=== PATIENT | female | born 1985 | race Caucasian/White ===

== ENCOUNTER 2023-06-04 12:35 | Outpatient (CLI) | payer BC, SELFPAY ==
--- NOTE | 2023-06-04 12:45 | USR_ITS ---
PROCEDURE INFORMATION: Exam: US , Limited Exam date and time: 06/04/2023 1:20 PM Age: 37 years old Clinical indication: Screening exam; Routine US, uterus; Additional info: In the next week if possible - anatomy US TECHNIQUE: Imaging protocol: Real-time ultrasound of the maternal uterus with image documentation. Exam focused on the clinical indication. COMPARISON: No relevant prior studies available. FINDINGS: Gestation: Single live intrauterine gestation/. heart rate: 153 bpm presentation and position: position variable. Placenta: Posterior, no previa. Cervix appears long and closed. BIOMETRY: Estimated due date (AUA): Average ultrasound age 24 weeks 1 day with SEDA 09/23/2023. Estimated weight: 655.01 g. (1 lb 7 oz) EFW by AC, BPD, FL, HC, Hadlock 1985 36.3 percentile. Biparietal diameter (BPD): 5.89 cm. EGA (BPD) is 24 w 1 d. 40.8 % percentile Head circumference (HC): 22.4 cm. EGA (HC) is 24 w 3 d. 42.2 % percentile Abdominal circumference (AC): 19.19 cm. EGA (AC) is 23 w 6 d. 33.7 % percentile Femur length (FL): 4.31 cm. EGA (FL) is 24 w 1 d. 36 % percentile Cephalic index (CI): 73.63. (Normal range: 70 - 86) HC/AC: 1.17. (Normal range: 1.04 - 1.22) FL/HC: 19.24. (Normal range: 18.7 - 20.81) FL/BPD: 73.17. (Normal range: 71 - 87) FL/AC: 22.46. (Normal range: 20 - 24) Visualized anatomy appears within normal limits, including four-chamber heart, extremities, face, profile, spine, LVOT, cord insertion, urinary bladder, stomach, kidneys, three-vessel cord, lateral ventricles/choroid plexus, cerebellum/cm, CSP, LVOT/RVOT, and diaphragm. Female gestation suggested. US/US OB >= 14 weeks fetus [id number] IMPRESSION: Single viable intrauterine of 24 weeks 1 day AUA, EFW 655.01 g (36.3 percentile), posterior placenta, long and closed cervix, variable position, and unremarkable anatomy.
== END 2023-06-04 12:36 | disposition home or self-care (01) ==
LOC: RAD 12:35
PROVIDERS: PCP Family Medicine; Visit Provider Family Medicine
DX: O09.522 Supervision of elderly multigravida, second trimester (principal); Z86.32 Personal history of gestational diabetes; O09.299 Supervision of pregnancy with other poor reproductive or obstetric history, unspecified trimester; Z3A.24 24 weeks gestation of pregnancy
CPT/HCPCS: 76805; 82951; 82952

== ENCOUNTER → 2023-06-24 12:22 | Outpatient (BNVA) | payer BC, SELFPAY | PROVIDERS: PCP Family Medicine; Visit Provider Family Medicine | DX: Z34.90 Encounter for supervision of normal pregnancy, unspecified, unspecified trimester (principal) | CPT/HCPCS: 80307; 86762; 86803; 86850; 86900; 87086; 87340 ==

== ENCOUNTER → 2023-07-20 14:18 | Outpatient (BNVA) | payer BC, SELFPAY | PROVIDERS: PCP Family Medicine; Visit Provider Family Medicine | DX: O09.522 Supervision of elderly multigravida, second trimester (principal); Z51.81 Encounter for therapeutic drug level monitoring; Z3A.00 Weeks of gestation of pregnancy not specified | CPT/HCPCS: 85025 ==

== ENCOUNTER → 2023-08-31 13:31 | Outpatient (BNVA) | payer BC, MEDICAID, SELFPAY | PROVIDERS: PCP Family Medicine; Visit Provider Family Medicine | DX: O09.523 Supervision of elderly multigravida, third trimester (principal); R03.0 Elevated blood-pressure reading, without diagnosis of hypertension; Z51.81 Encounter for therapeutic drug level monitoring; Z3A.00 Weeks of gestation of pregnancy not specified | CPT/HCPCS: 80053; 82570; 84156; 84550; 85025 ==

== ENCOUNTER 2023-09-03 13:04 | Outpatient (CLI) | payer BC, MEDICAID, SELFPAY ==
--- NOTE | 2023-09-03 13:30 | US_ITS ---
WS: [id number] LIMITED OBSTETRICAL ULTRASOUND HISTORY: CAROL/EFW - This week please COMPARISON: 06/04/2023 Presentation: Vertex. Cervix: Obscured by the head. Placenta: Posterior and fundal. Grade: 1 HEART: FHR of 148 BPM. measurements: BPD = 9.0 cm = 36w4d; 50% HC = 32.7 cm = 37w1d; 24% AC = 32.8 cm = 36w5d; 50% FL = 7.3 cm = 37w2d; 51% CAROL: 17.4 cm EFW: 3046.6 g; 48 % AGA by ultrasound: 37w0d SEDA by ultrasound: 09/24/2023 US/US OB limited [id number] IMPRESSION: 1. Single intrauterine gestation of 37w0d with an SEDA of 09/24/2023. Appropria te growth since the second trimester ultrasound of 06/04/2023. 2. Normal amniotic fluid. 3. Normal weight at the 48th percentile.
== END 2023-09-03 13:05 | disposition home or self-care (01) ==
LOC: RAD 13:05
PROVIDERS: PCP Family Medicine; Visit Provider Family Medicine
DX: O09.523 Supervision of elderly multigravida, third trimester (principal)
CPT/HCPCS: 76815

== ENCOUNTER 2023-09-03 13:08 | Outpatient (CLI) | payer BC, MEDICAID, SELFPAY ==
[2023-09-03 14:31] LABS: Total Volume, Urine 4400 mL
== END 2023-09-03 13:09 | disposition home or self-care (01) ==
LOC: LAB 13:10
PROVIDERS: PCP Family Medicine; Visit Provider Family Medicine
DX: O09.523 Supervision of elderly multigravida, third trimester (principal); R03.0 Elevated blood-pressure reading, without diagnosis of hypertension
CPT/HCPCS: 84156

== ENCOUNTER 2023-09-15 23:48 | Inpatient (IN) | payer BC, MEDICAID, SELFPAY ==
[2023-09-15] VITALS (11 sets, daily range): BP systolic 132–148; BP diastolic 64–79; PULSE 64–82; RESP 16; BMI 37.5
[2023-09-15 22:52] LABS: Basophils % 0.3 %; Eosinophils % 0.4 %; Hematocrit 33.9 % (36-47); Lymphocytes # 1.3 10^3/uL (0.8-4.8); Lymphocytes % 17.1 %; Mean Corpuscular HGB Conc 33.3 g/dL (30-55); Mean Corpuscular Hemoglobin 26.7 pg (27-33); Mean Corpuscular Volume 80.1 fl (85-98); Mean Platelet Volume 10.8 fL (7.4-10.4); Monocytes # 0.5 10^3/uL (0.2-0.9); Monocytes % 6.1 %; Neutrophils # 5.58 10^3/uL (1.8-7.7); Neutrophils % 75.2 %; Nucleated Red Blood Cells % 0 %; Platelet Count 177 10^3/cmm (157-399); Red Blood Count 4.23 10^6/uL (3.85-5.65); Red Cell Distribution Width 14.5 % (12.1-15.1); White Blood Count 7.42 10^3/uL (3.29-11.43)
[2023-09-16] VITALS (37 sets, daily range): BP systolic 103–150; BP diastolic 58–87; PULSE 58–87; RESP 16–20; TEMP 36.6–37.2; O2SAT 98–99
[2023-09-16] MEDS: miSOPROStol 100 mcg tablet 25 MCG VAGINAL (09:29)
[2023-09-16] MEDS: lactated ringers 1,000 ML 999 ML IV (14:54)
[2023-09-16] MEDS: oxytocin 30 UNIT/500 ML BAG 999 UNIT IV (18:02)
[2023-09-16] MEDS: dextrose 5%-lactated ringers 1,000 ML 125 ML IV (18:03)
--- NOTE | 2023-09-16 20:19 | PM.DELIVERY ---
Delivery Note: Date of delivery: September 16, 2023 Pre-delivery diagnoses: 38-year-old 6 para 3-0-2-3 at 39 weeks estimated gestational age Post-delivery diagnoses: Status post vaginal delivery with shoulder dystocia Procedure: Vaginal delivery with shoulder dystocia Delivering Physician: Eric Saeed Estimated blood loss (mL): 50 Pre-Delivery Course: The patient presented to the hospital having consistent contractions and having made cervical change since being seen in the office. Through the night she had contractions but made minimal change. Cytotec x 1 was given. About 4 hours later she began to make significant progress. She then progressed to 9 cm. While checking her, her membranes ruptured. Her cervix was noted to be 9 cm and very stretchy. After pushing through 1 contraction her cervix was noted to easily stretch around the baby's head. After 1 push her cervix was then complete. Delivery: DELIVERY: We pushed through 1 more contraction, and she delivered a female with a weight of 8 pounds 15 ounces with Apgars of 4, 9. The baby was delivered from the PUNEET position. After delivery of the head, a shoulder dystocia was noted. La was performed. I initially attempted a corkscrew maneuver which was unsuccessful. I then attempted to deliver the posterior shoulder which was also unsuccessful. I then pushed back on the posterior shoulder while reattempted the corkscrew maneuver and the shoulder was successfully delivered. The shoulder dystocia lasted for about 1 minute. During the last corkscrew maneuver and delivery of the shoulder I felt a pop consistent with a clavicle fracture. The baby was then placed on the mother's abdomen. The baby was noted to be moving both arms symmetrically and apparently without difficulty. The cord was then clamped and cut. There was no nuchal cord. There was no meconium. The placenta and 3 vessel cord were delivered intact shortly thereafter. The perineum and vaginal vault were carefully examined. A small first-degree posterior midline laceration was noted. no repair was required. Both the mother and the baby were in stable condition. Post-Delivery Status: Good History History History 6 Term 3 Miscarriages/Ectopic 2 Living Children Past Pregnancies Del. Date GA/Weeks Outcome Route Wt Inf Gender Labor Lgth Comp. Anesthesia Location 02/14/16 38 live - full term Vaginal Female Shoulder dystocia [facility] 01/15/18 39 live - full term Vaginal 8 lb 8 oz Female 8 hrs [facility] 11/12/19 39 live - full term Vaginal 9 lb 14 oz Male 24 hrs [facility] 06/08/22 4 spontaneous 09/08/22 4 spontaneous Delivery Date: 02/14/16 Last Updated by: Shahram Hand MD Spontaneous labor, delivered 45 min from arrival, blood pressure in 140/70's. No official preeclampsia, vaginal tear, shoulder dystocia <30 seconds, retained placenta with manual removal, no epidural Delivery Date: 01/15/18 Last Updated by: Shahram Hand MD BP's 140/70 - concern for preeclampsia, started Aspirin 81mg, spontaneous labor, No epidural, TIA a week after delivery Delivery Date: 11/12/19 Last Updated by: Shahram Hand MD Induced with cytotec for concern for LGA (estimated >10 lbs), gDM Insulin 10 units daily, low dose aspirin, concerns for preeclampsia but nothing major . No epidural A&P Assessment and plan (1) 39 weeks gestation of : I anticipate routine care. (2) Shoulder dystocia during labor and delivery, delivered: Coding Level of Care Code Acute Code for Chg Fwd Diagnoses 39 weeks gestation of Z3A.39 Shoulder dystocia during labor and delivery, delivered O66.0
--- NOTE | 2023-09-16 20:25 | P.HPUD_ITS ---
Labor & Delivery H&P Update Date of Procedure: September 16, 2023 Date H&P Performed: 09/13/23 Changes to previous documentation: The patient's cervix was 4 cm dilated with consistent contractions. Admission Diagnosis: 38-year-old 6 para 3-0-2-3 female at 39 weeks estimated gestational age Planned procedure: Vaginal delivery Other information: The patient is a 38-year-old female who has had a relatively unremarkable . Her blood type was O+. Her antibody screen was negative. Her infectious disease profile was within normal limits. She is rubella immune. She was GBS negative. She passed her 3-hour glucose screen. She began contractions the day of delivery. The became consistent and more st lesia and as result she came in for further evaluation. Her membranes were intact. She had no other concerns. She did have a history of 3 previous children who had shoulder dystocia as well as hyperbilirubinemia. Related Problem List Diagnoses (1) 39 weeks gestation of : (2) History of shoulder dystocia in prior : A&P Assessment and plan (1) 39 weeks gestation of : While the patient was not making rapid chains upon arrival to the hospital, we elected to keep her in to augment her labor for multiple reasons. The first is that she has a history of shoulder dystocia and large babies. As such, she and her baby may benefit from a 39-week delivery. The second is that she also has a history of rapid labors when she does go into labor. Since she lives in [place] and has over half hour trip to the hospital, I felt to be difficult to tell her to go home away to the contractions became stronger since she was unable consistent strong contractions and she would be high risk for delivering the baby at home. Especially in light of her tendency towards quick deliveries that then ended up and shoulder dystocia the benefits of sending her home were outweighed by the risks. Finally, given her age greater than 35 her risk for complications would be greater over the next 1 to 2 weeks. Status: Acute (2) History of shoulder dystocia in prior : Status: Acute
[2023-09-17] VITALS (9 sets, daily range): BP systolic 123–162; BP diastolic 72–84; PULSE 72–81; RESP 16; TEMP 36.6–37; O2SAT 98
--- NOTE | 2023-09-17 07:44 | P.DS_ITS ---
Discharge Providers S IRON WORKER Date of Admission: 09/15/23 23:48 Date of Discharge: 09/17/23 Attending Provider at Admission: Eric Saeed MD Attending Provider at Discharge: Eric Saeed MD Primary Care Provider: Shahram Hand MD Diagnoses at Discharge Discharge Diagnosis (1) 39 weeks gestation of : Status: Acute (2) Shoulder dystocia during labor and delivery, delivered: Status: Acute Reason for Visit Reason for Visit: CTX-5 min Hospital Course Hospital Course The patient received excellent care by Dr. Hand. I was covering for Dr. Hand and was notified that the patient presented to the hospital after having consistent contractions. Her cervix was found to be dilated compared to her reported office visit. Due to multiple factors described in the H&P, the decision was made to admit her to the hospital, and ultimately augment her labor. She did not get an epidural or have any other pain control. She progressed to 9 cm with intact membranes. Her membranes ruptured during a cervical check. She then pushed through 2 contractions and delivered the head without difficulty. She had a shoulder dystocia which resolved with appropriate interventions in about a minute. She had a first-degree posterior midline tear that was not repaired. Her course was unremarkable. Her bleeding was within normal limits. Her pain was well-controlled. She breast-fed well. There were no concerns. Information Peripartum Data: Infant Delivery Method: Vaginal Physical Exam Narrative: The patient is alert. She appears comfortable. Her heart has a regular rate and rhythm with no murmurs appreciated. Lungs are clear to auscultation bilaterally. Her fundus is firm and below the umbilicus. History History History 6 Term 3 Miscarriages/Ectopic 2 Living Children Past Pregnancies Del. Date GA/Weeks Outcome Route Wt Inf Gender Labor Lgth Comp. Anesth esia Location 02/14/16 38 live - full term Vaginal Female Shoul neil dystocia [facility] 01/15/18 39 live - full term Vaginal 8 lb 8 oz Female 8 hrs [facility] 11/12/19 39 live - full term Vaginal 9 lb 14 oz Male 24 hrs [facility] 06/08/22 4 spontaneous 09/08/22 4 spontaneous Delivery Date: 02/14/16 Last Updated by: Shahram Hand MD Spontaneous labor, delivered 45 min from arrival, blood pressure in 140/70's. No official preeclampsia, vaginal tear, shoulder dystocia <30 seconds, retained placenta with manual removal, no epidural Delivery Date: 01/15/18 Last Updated by: Shahram Hand MD BP's 140/70 - concern for preeclampsia, started Aspirin 81mg, spontaneous labor, No epidural, TIA a week after delivery Delivery Date: 11/12/19 Last Updated by: Shahram Hand MD Induced with cytotec for concern for LGA (estimated >10 lbs), gDM Insulin 10 units daily, low dose aspirin, concerns for preeclampsia but nothing major . No epidural Discharge Data Studies Completed and Pending Pending at discharge Category Date Time Status Hemagram Timed Lab 09/17/23 08:18 Uncollected Laboratory Results WBC 7.42 10^3/uL (3.29-11.43) 09/15/23 21:00 RBC 4.23 10^6/uL (3.85-5.65) 09/15/23 21:00 Hgb 11.30 g/dL (11.27-16.99) 09/15/23 21:00 Hct 33.9 % (36-47) L 09/15/23 21:00 MCV 80.1 fl (85-98) L 09/15/23 21:00 MCH 26.7 pg (27-33) L 09/15/23 21:00 MCHC 33.3 g/dL (30-55) 09/15/23 21:00 RDW 14.5 % (12.1-15.1) 09/15/23 21:00 Plt Count 177 10^3/cmm (157-399) 09/15/23 21:00 MPV 10.8 fL (7.4-10.4) H 09/15/23 21:00 Neut % (Auto) 75.2 % 09/15/23 21:00 Lymph % (Auto) 17.1 % 09/15/23 21:00 [place] % (Auto) 6.1 % 09/15/23 21:00 Eos % (Auto) 0.4 % 09/15/23 21:00 Baso % (Auto) 0.3 % 09/15/23 21:00 Neut # (Auto) 5.58 10^3/uL (1.8-7.7) 09/15/23 21:00 Lymph # (Auto) 1.3 10^3/uL (0.8-4.8) 09/15/23 21:00 [place] # (Auto) 0.5 10^3/uL (0.2-0.9) 09/15/23 21:00 Eos # (Auto) 0.0 10^3/uL (0.0-0.8) 09/15/23 21:00 Baso # (Auto) 0.0 10^3/uL (0.0-0.1) 09/15/23 21:00 Nucleated RBC % (auto) 0 % 09/15/23 21:00 Nucleated RBCs # 0.0 /100WBC 09/15/23 21:00 Blood Type O Positive 09/15/23 21:00 Rho(D) Type Rh positive 09/15/23 21:00 Antibody Screen Negative 09/15/23 21:00 Vitals Last Vital Signs Temp 98.3 F 09/17/23 06:45 Pulse 72 09/17/23 06:45 Resp 20 H 09/16/23 17:14 BP 144/79 09/17/23 06:45 Pulse Ox 98 09/16/23 23:00 O2 Del Method Room Air 09/15/23 22:38 Results Labs OB ([facility]): Obstetrics US 09/03/23 Blood Type O Positive 09/15/23 Antibody Screen Negative 09/15/23 Hct 33.9 % (36-47) L 09/15/23 Hgb 11.30 g/dL (11.27-16.99) 09/15/23 Rho(D) Type Rh positive 09/15/23 Plt Count 177 10^3/cmm (157-399) 09/15/23 Hep Bs Antigen Non-reactive (Nonreactive) 06/24/23 Hepatitis C Antibody Non-reactive (Nonreactive) 06/24/23 Rubella IgG Antibody 338.9 IU/mL (0.0-10.0) H 06/24/23 Gest Glucose Tolerance mg/dL 06/04/23 Uric Acid 3.7 mg/dL (2.4-5.7) 08/31/23 Urine Opiates Screen Negative ng/mL (Negative) 06/24/23 Ur Barbiturates Screen Negative ng/mL (Negative) 06/24/23 Ur Phencyclidine Scrn Negative ng/mL (Negative) 06/24/23 Ur Amphetamines Screen Negative ng/mL (Negative) 06/24/23 U Benzodiazepines Scrn Negative ng/mL (Negative) 06/24/23 Urine Cocaine Screen Negative ng/mL (Negative) 06/24/23 U Marijuana (THC) Screen Negative ng/mL (Negative) 06/24/23 Micro Urine Specimen 06/24/23 Discharge Plan Discharge Patient Disposition: Home Condition: Stable Prescriptions: New ibuprofen 800 mg Tablet 800 mg PO TID Qty: 45 0RF Discontinued (DME) FreeStyle Lite Strips Strip See Rx Instructions .Route Qty: 100 3RF Rx Instructions: As directed (DME) lancets [FreeStyle Lancets] 28 gauge misc See Rx Instructions .Route Qty: 100 3RF Rx Instructions: As directed (DME) lancets [OneTouch Delica Plus Lancet] 33 gauge misc See Rx Instructions .ROUTE .MEDSUPPLY Qty: 100 12RF Rx Instructions: As directed (DME) blood-glucose meter [OneTouch Ultra2 Meter] Misc See Rx Instructions .ROUTE .MEDSUPPLY Qty: 1 0RF Rx Instructions: As directed (DME) OneTouch Ultra Test Strip See Rx Instructions .Route Qty: 100 3RF Rx Instructions: As directed Discharge Orders: Discharge Order (Routine); Ordered 09/17/23 Ordered By: Eric Saeed Referrals: Shahram Hand MD [Primary Care Provider] - 6 Weeks Discharge Diet: Usual diet Discharge Activity: Limit activity as instructed Patient Instructions: Opioid Safety Discharge Attestations S IRON WORKER Time Spent in Discharge Care*: less than 30 min Coding Level of Care Code Acute Code for Chg Fwd Diagnoses 39 weeks gestation of Z3A.39 Shoulder dystocia during labor and delivery, delivered O66.0
[2023-09-17 08:48] LABS: Hematocrit 34.3 % (36-47); Mean Corpuscular HGB Conc 32.7 g/dL (30-55); Mean Corpuscular Hemoglobin 26.4 pg (27-33); Mean Corpuscular Volume 80.9 fl (85-98); Mean Platelet Volume 10.3 fL (7.4-10.4); Platelet Count 144 10^3/cmm (157-399); Red Blood Count 4.24 10^6/uL (3.85-5.65); Red Cell Distribution Width 14.6 % (12.1-15.1); White Blood Count 8.67 10^3/uL (3.29-11.43)
== END 2023-09-17 19:57 | disposition home or self-care (01) | DRG 807 ==
LOC: OPOB 23:49 → OBGYN 23:49
PROVIDERS: Admitting Provider Family Medicine; PCP Family Medicine; Visit Provider Family Medicine
DX: O66.0 Obstructed labor due to shoulder dystocia (principal); Z37.0 Single live birth; O70.0 First degree perineal laceration during delivery; Z3A.39 39 weeks gestation of pregnancy
CPT/HCPCS: 36415; 59025; 59409; 85025; 85027; 86850; 86900; 99211; J2590; J7120; J7121

== ENCOUNTER 2024-12-07 20:28 | Emergency (ER) | payer BC, MEDICAID, SELFPAY ==
[2024-12-07 20:29] VITALS: BP 134/78; PULSE 80; RESP 16; TEMP 37.3; O2SAT 98; BMI 33.8
--- NOTE | 2024-12-07 20:33 | ECG_ITS ---
[facility] Date: 2024-12-07 Pat Name: Beverley Rowland Department: Room: Gender: Female Physician/Internist: : [id number] Requested By: Pierce Kim Order Number: [id number] Jimenez MD: Bernard Elizabeth M.D. Measurements Intervals [place] Rate: 82 P: 38 OH: 165 QRS: 38 QRSD: 109 T: 46 QT: 372 QTc: 436 Interpretive Statements SINUS RHYTHM No previous ECG available for comparison Electronically Signed On 12-09-2024 20:51:36 CDT by Bernard Elizabeth M.D. [email or web address]
--- NOTE | 2024-12-07 20:48 | XRR_ITS ---
PROCEDURE INFORMATION: Exam: XR Chest Exam date and time: 12/07/2024 8:54 PM Age: 39 years old Clinical indication: Pain; Angina pectoris; Additional info: Chest pain TECHNIQUE: Imaging protocol: Radiologic exam of the chest. Views: 1 view. COMPARISON: No relevant prior studies available. FINDINGS: Lungs: Unremarkable. No consolidation. Pleural spaces: Unremarkable. No pleural effusion. No pneumothorax. Heart/Mediastinum: Unremarkable. No cardiomegaly. Bones/joints: Unremarkable. XR/XR chest 1V portable [id number] IMPRESSION: No acute findings.
[2024-12-07 21:28] LABS: Hematocrit 38.4 % (36-47); Hemoglobin 12.30 g/dL (11.27-16.99); Mean Corpuscular HGB Conc 32.0 g/dL (30-55); Mean Corpuscular Hemoglobin 26.6 pg (27-33); Mean Corpuscular Volume 82.9 fl (85-98); Nucleated Red Blood Cells % 0 %; Platelet Count 258 10^3/cmm (157-399); Red Blood Count 4.63 10^6/uL (3.85-5.65); White Blood Count 7.51 10^3/uL (3.29-11.43)
[2024-12-07 21:45] LABS: Alanine Aminotransferase 14 U/L (0-33); Albumin Level 4.5 g/dL (3.5-5.2); Alkaline Phosphatase 93 U/L (35-105); Anion Gap 17.2 (5-19); Aspartate Amino Transferase 16 U/L (0-32); Blood Urea Nitrogen 12 mg/dL (6-20); Calcium 9.7 mg/dL (8.5-10.5); Carbon Dioxide 25 mmol/L (22-29); Chloride 105 mmol/L (98-107); Creatinine Clr Calc Pharmacy 154.3280; Globulin 2.6 g/dL (1.3-4.6); Glucose 110 mg/dL (65-115); Osmolality Calculated 296 mOsm/kg (285-295); Potassium 4.2 mmol/L (3.5-5.1); Sodium 143 mmol/L (136-145); Total Protein 7.1 g/dL (6.6-8.7)
[2024-12-07 21:46] LABS: Troponin(5th) Baseline < 6 ng/L (0-10)
[2024-12-07 23:31] VITALS: BP 176/98; PULSE 87; RESP 13; O2SAT 96
--- NOTE | 2024-12-07 23:59 | ED_ITS ---
HPI - Chest Pain 2 General: Chief Complaint: Chest Pain Stated Complaint: CP Time Seen by Provider: 12/07/24 23:18 History of Present Illness: Patient is a kind 39-year-old female without medical issues or home medications, presents to the emergency room when she had a sharp stabbing pain in her left scapula occur at 3 PM. She does not have history of coagulopathy. She does not have a history of coronary artery disease. There is no early history of cardiac disease in her family. This was associated with worsening pain throughout the day in her scapula, then she noted it sweeping across the front of her shoulder on the left side, and her jaw. She did have some associated shortness of breath at that time. No abdominal pain. No nausea. No sick contacts. No previous ischemic workup. When moving the left arm, this was worse. Associated symptoms: Reports palpitations; Deny abdominal pain, dyspnea, fever(s), nausea or vomiting Related Data Previous Rx's ?Medication ?Instructions ?Recorded ketorolac 10 mg tablet 10 mg PO Q8H PRN pain 5 days #14 12/08/24 tabs methocarbamol 500 mg tablet 500 mg PO Q8H PRN muscle s pasm #30 12/08/24 tabs Allergies Allergy/AdvReac Type Severity Reaction Status Date / Time amoxicillin Allergy Mild ALGY-Rash Verified 12/07/24 20:41 Review of Systems 2 General: Reports: 10 or more systems reviewed and unremarkable except in HPI and below Const: Denies: fever(s) or chills ENMT: Denies: throat pain or mouth pain Card: Reports: chest pain and palpitations Resp: Denies: dyspnea or non-productive cough GI: Denies: abdominal pain, nausea or vomiting : Denies: flank pain or difficulty voiding Musc: Denies: neck pain or back pain Neuro: Denies: headache(s) or numbness in extremities Psych: Denies: anxiety or depression PFSH ED 2 PFSH: Medical History (Updated 12/08/24 @ 00:11 by CHIQUIS Gordon) History of shoulder dystocia in prior 39 weeks gestation of Surgical History Hx of wisdom tooth extraction Family History Father Diabetes mellitus, type 2 Macular degeneration Social History Smoking and tobacco/nicotine status: never used tobacco/nicotine Alcohol intake: never Substance/Drug Use: never Marital status: Physical Exam 2 Const: COMMON NORMALS: no acute distress, average body habitus, patient oriented x3 and no limitations HENMT: COMMON NORMALS: normocephalic and atraumatic HEAD & SCALP: n ormocephalic and atraumatic Neck/C-Spine: COMMON NORMALS: no JVD Chest: COMMONS NORMALS: normal inspection of the chest and normal palpation of entire chest wall Resp: COMMON NORMALS: normal respiratory effort, No retractions and clear to auscultation bilaterally AUSCULTATION: clear to auscultation bilaterally Cardio: COMMON NORMALS: no JVD, regular rate and regular rhythm RATE: r egular rate RHYTHM: regular rhythm GI: COMMON NORMALS: Normal to inspection, nondistended, normoactive bowel sounds present, Soft to palpation, non-tender and No hepatosplenomegaly present PALPATION: Yes Soft to palpation and Yes No hepatosplenomegaly present : COMMON NORMALS: Yes no CVA tenderness BLADDER/KIDNEY EXAM: Yes no CVA tenderness Back/Pelvis: COMMON NORMALS: no CVA tenderness Extremity: COMMON NORMALS: normal to inspection and capillary refill normal NARRATIVE EXTREMITY EXAM: Decreased left shoulder range of motion. This is secondary to pain. Empty can test is negative. Left scapula with pain on palpation. Neuro: COMMON NORMALS: patient oriented x3 and CN's II-XII intact bilaterally Psych: COMMON NORMALS: mental status grossly normal and Normal thought process present THOUGHT PROCESS: Normal thought process present Course 2 Vital Signs: Vital signs: Vital Signs Temperature 99.1 F 12/07/24 20:29 Pulse Rate 87 12/07/24 23:31 Respiratory Rate 13 12/07/24 23:31 Blood Pressure 176/98 12/07/24 23:31 Pulse Oximetry 96 12/07/24 23:31 Oxygen Delivery Me thod Room Air 12/07/24 23:31 MDM - Chest Pain Medical Decision Making Patient is a 39-year-old female with left scapular pain. This is worse with range of motion, and palpitation. Initial workup is negative. Chest x-ray is negative. This is associated with musculoskeletal pain. Will give Toradol, Norflex x 1, and treat with methocarbamol, Toradol outpatient. Patient will follow-up primary care. Lab Data 12/07/24 21:13 12/07/24 21:13 Radiology Impressions Chest X-Ray 12/07/24 20:48 IMPRESSION: No acute findings. Laboratory Results WBC 7.51 10^3/uL (3.29-11.43) 12/07/24 21:13 RBC 4.63 10^6/uL (3.85-5.65) 12/07/24 21:13 Hgb 12.30 g/dL (11.27-16.99) 12/07/24 21:13 Hct 38.4 % (36-47) 12/07/24 21:13 MCV 82.9 fl (85-98) L 12/07/24 21:13 MCH 26.6 pg (27-33) L 12/07/24 21:13 MCHC 32.0 g/dL (30-55) 12/07/24 21:13 RDW 13.6 % (12.1-15.1) 12/07/24 21:13 Plt Count 258 10^3/cmm (157-399) 12/07/24 21:13 MPV 9.7 fL (7.4-10.4) 12/07/24 21:13 Neut % (Auto) 64.9 % 12/07/24 21:13 Lymph % (Auto) 26.0 % 12/07/24 21:13 [place] % (Auto) 4.4 % 12/07/24 21:13 Eos % (Auto) 3.7 % 12/07/24 21:13 Baso % (Auto) 0.5 % 12/07/24 21:13 Neut # (Auto) 4.87 10^3/uL (1.8-7.7) 12/07/24 21:13 Lymph # (Auto) 2.0 10^3/uL (0.8-4.8) 12/07/24 21:13 [place] # (Auto) 0.3 10^3/uL (0.2-0.9) 12/07/24 21:13 Eos # (Auto) 0.3 10^3/uL (0.0-0.8) 12/07/24 21:13 Baso # (Auto) 0.0 10^3/uL (0.0-0.1) 12/07/24 21:13 Nucleated RBC % (auto) 0 % 12/07/24 21:13 Nucleated RBCs # 0.0 /100WBC 12/07/24 21:13 Sodium 143 mmol/L (136-145) 12/07/24 21:13 Potassium 4.2 mmol/L (3.5-5.1) 12/07/24 21:13 Chloride 105 mmol/L (98-107) 12/07/24 21:13 Carbon Dioxide 25 mmol/L (22-29) 12/07/24 21:13 Anion Gap 17.2 (5-19) 12/07/24 21:13 BUN 12 mg/dL (6-20) 12/07/24 21:13 Creatinine 0.6 mg/dL (0.5-0.9) 12/07/24 21:13 GFR Calculation 112.5 mL/min (90-130) 12/07/24 21:13 Glucose 110 mg/dL (65-115) 12/07/24 21:13 Calculated Osmolality 296 mOsm/kg (285-295) H 12/07/24 21:13 Calcium 9.7 mg/dL (8.5-10.5) 12/07/24 21:13 Total Bilirubin 0.2 mg/dL (0.15-1.2) 12/07/24 21:13 AST 16 U/L (0-32) 12/07/24 21:13 ALT 14 U/L (0-33) 12/07/24 21:13 Alkaline Phosphatase 93 U/L (35-105) 12/07/24 21:13 Troponin T Baseline < 6 ng/L (0-10) 12/07/24 21:13 Total Protein 7.1 g/dL (6.6-8.7) 12/07/24 21:13 Albumin 4.5 g/dL (3.5-5.2) 12/07/24 21:13 Globulin 2.6 g/dL (1.3-4.6) 12/07/24 21:13 All radiology interpretation(s) finalized by discharge EKG Data EKG 1: Interpretation: Normal sinus rhythm, normal axis Discharge Plan Discharge Patient Disposition: Home Clinical Impression: Non-cardiac chest pain, Chest pain, muscular Condition: Stable Prescriptions: New methocarbamol 500 mg tablet 500 mg PO Q8H PRN (Reason: muscle spasm) Qty: 30 0RF ketorolac 10 mg tablet 10 mg PO Q8H PRN (Reason: pain) 5 Days Qty: 14 0RF Discharge Orders: Discharge ED (Routine); Ordered 12/07/24 Ordered By: Zohreh Asencio Referrals: Shahram Hand MD [Primary Care Provider, Family Practice] Discharge Diet: Usual diet Discharge Activity: Resume usual activity Patient Instructions: Patient Portal & Lona Instructions, Exercises for Shoulder Abduction and Adduction (ED), Chest Pain - Noncardiac Activity Restrictions/Additional Instructions: Medications at the pharmacy Toradol/ketorolac, Robaxin/methocarbamol. The first 1 is an NSAID, the second 1 is a muscle relaxer. The NSAID and muscle relaxer you can have while you are nursing. The muscle relaxer may cause increasing sedation, therefore would break in half and make sure you tolerate. After you get pain relief, work on your range of motion exercises I gave you. - Additional considerations: Obtain lidocaine over the counter at the [facility] locally and apply to your shoulder. Your can help you place it. Paper tape will help keep it in place. - Do not use any other NSAIDs if you are using your ketorolac/Toradol. This can disrupt your stomach, and cause ulcers. You may use Tylenol. - Ice may help with this as well as heat. Typically with it being inflamed, ice will help the pain improved. You may return to the ED if you do have more issues. Thank you for choosing [facility] for your healthcare needs today. You have been screened and evaluated and felt safe for discharge. Health conditions do change or evolve sometimes and as such it is important that you follow up with your Primary Doctor to be re checked, 3-5 days is a general good time frame for follow up. You are always welcome to return to the ED for re assessment if your symptoms are worsening or you have new concerns Print Language: Danish Coding Level of Care Code ED Nurse Infection Control for Juan Antonioerin Fwkaren Heart Score HEART Score Components History: Slightly Suspicous EKG: Normal Age: Less than 45 yrs Risk Factors: No Risk Factors Known Troponin: Baseline Trop <16 ng/L HEART Score RESULT HEART Score: 0
[2024-12-08] MEDS: orphenadrine 30 mg/mL Inj 2 mL 60 MG IM (00:09)
[2024-12-08 00:12] LABS: Troponin 5 2HR 6.86 ng/L (0-10); Troponin 5 2HR Delta 0.86001 ABS# (0-10)
[2024-12-08 00:41] VITALS: BP 135/59; PULSE 70; O2SAT 96
== END 2024-12-08 00:42 | disposition home or self-care (01) ==
PROVIDERS: Student in an Organized Health Care Education/Training Program; Emergency Provider Physician Assistant; PCP Family Medicine
DX: R07.89 Other chest pain (principal)
CPT/HCPCS: 36415; 71045; 80053; 84484; 85025; 93005; 96372; 99285; J1885; J2360